=== PATIENT | female | born 1970 | race Hispanic/Latino ===

== ENCOUNTER 2025-07-23 18:52 | Observation (INO) | payer BC ==
[~2025-07-23] VITALS: Ht 157.5 cm; Wt 67.6 kg
[2025-07-23] MEDS ORDERED: SOD POLYSTYRENE SULFONATE SUSP 15 GM/60 ML BTL PO ONE (19:30)
[2025-07-23] MEDS: SOD PHOSPHATE/SOD BIPHOSPHATE ENEMA 132 ML BTL PR ONE (19:32)
[2025-07-23] MEDS: LACTULOSE SYRUP 20 GM/30 ML UDC PO ONE (19:33)
[2025-07-23] MEDS: AMLODIPINE BESYLATE 5 MG TAB PO ONE (19:33)
[2025-07-23 21:43] VITALS: PULSE 82; RESP 16; TEMP 98
[2025-07-23] MEDS ORDERED: ONDANSETRON HCL INJ 2MG/ML 2ML 2 MG/ML VIAL IV PRN (22:15)
[2025-07-23] MEDS ORDERED: DEXTROSE 50% SYRINGE 50 ML IV PRN (22:45)
[2025-07-23] MEDS ORDERED: HYDRALAZINE HCL 20 MG/ML VIAL IV PRN (23:15)
[2025-07-23 23:25] VITALS: BP 131/71; PULSE 77; RESP 18; TEMP 97.9; O2SAT 94
[2025-07-23] MEDS ORDERED: METFORMIN HCL500 MG PO (23:59)
[2025-07-24] MEDS: SODIUM CHLORIDE 0.9% 1000ML 1,000 ML IV SCH (00:10)
[2025-07-24] MEDS: SOD PHOSPHATE/SOD BIPHOSPHATE ENEMA 132 ML BTL PR ONE (00:10)
[2025-07-24 01:20] VITALS: BP 144/90; PULSE 80; RESP 18; TEMP 98.6; O2SAT 100
[2025-07-24 06:17] LABS: BASOPHILS % 0.5 % (0.0-1.0); EOSINOPHILS % 4.5 % (0.0-6.0); LYMPHOCYTES % 37.6 % (18.0-39.1); MONOCYTES % 6.9 % (4.4-11.3); NEUTROPHILS % 50.3 % (38.7-80.0); RED CELL DISTRIBUTION WIDTH 14.6 % (11.7-14.4)
[2025-07-24 06:48] LABS: EST GLOMERULAR FILTRATION RATE 110.0 ML/MIN (>=60)
[2025-07-24] MEDS: INSULIN REGULAR, HUMAN 100 UNIT/1 ML SQ SCH (07:30)
[2025-07-24 07:40] VITALS: BP 157/75; PULSE 72; RESP 18; TEMP 98.3; O2SAT 94
[2025-07-24] MEDS: GLIMEPIRIDE 2 MG TAB PO SCH (08:26)
[2025-07-24] MEDS: AMLODIPINE BESYLATE 5 MG TAB PO ONE (08:27)
[2025-07-24] MEDS: LISINOPRIL 20 MG TAB PO SCH (08:27)
[2025-07-24] MEDS: SENNOSIDES 8.6 MG TAB PO SCH (08:27)
[2025-07-24] MEDS: DOCUSATE SODIUM 100 MG CAP PO SCH (08:27)
[2025-07-24] MEDS: CITALOPRAM HYDROBROMIDE 20 MG TAB PO SCH (08:27)
[2025-07-24] MEDS: BISACODYL 10 MG SUPP PR PRN (10:28)
[2025-07-24] MEDS: LACTULOSE SYRUP 20 GM/30 ML UDC PO PRN (10:28)
[2025-07-24 11:35] VITALS: BP 128/69; PULSE 78; RESP 18; TEMP 98.1; O2SAT 100
[2025-07-24] MEDS ORDERED: CELEXA20 MG PO (13:31)
[2025-07-24] MEDS ORDERED: SENOKOT-S TABL1 EACH PO (13:31)
[2025-07-24] MEDS ORDERED: SIMVASTATIN20 MG PO (13:31)
[2025-07-24] MEDS ORDERED: Insulin Glargine SQ (13:31)
[2025-07-24] MEDS ORDERED: LISINOPRIL20 MG PO (13:31)
[2025-07-24] MEDS ORDERED: LACTULOSE10 GM/151 PO (13:31)
[2025-07-24] MEDS ORDERED: GLIMEPIRIDE2 MG PO (13:31)
[2025-07-24] MEDS ORDERED: INSULIN GLARGINE 100 UNITS/ML VIAL SQ SCH (21:00)
[2025-07-24] MEDS ORDERED: SIMVASTATIN 20 MG TAB PO SCH (21:00)
== END 2025-07-24 14:05 | disposition home or self-care (01) ==
LOC: FSED 18:56 → ERHOLD 22:37 → MED/SURG3 23:32
PROVIDERS: ADMIT Internal Medicine; ATTEND Internal Medicine
DX: K59.00 Constipation, unspecified (principal); I10 Essential (primary) hypertension; E11.9 Type 2 diabetes mellitus without complications; E78.5 Hyperlipidemia, unspecified; R16.0 Hepatomegaly, not elsewhere classified; Z79.84 Long term (current) use of oral hypoglycemic drugs; Z79.4 Long term (current) use of insulin
CPT/HCPCS: 36415; 74176; 80053; 81003; 82948; 83735; 85025; 99284; G0378 ×2; J7030